=== PATIENT | female | born 1925 | race Caucasian/White ===

== ENCOUNTER → 2016-09-22 | Outpatient (CLI) | payer MEDICARE, BC ==
[2016-03-30 09:20] VITALS: BP 110/72
[~2016-09-22] MED LIST: ASPI-482 PO; BUME1TAB PO; CARV3.122 PO; CRESTOR10 MG PO; FERR325T31 PO; LEVO100T PO; LISI2.5T PO; MAGN400T3 PO; MULT-245 PO; OMEP20CA9 PO; POTA20TA12 PO
--- NOTE | 2016-09-22 14:41 | CARD ---
APPROVED REPORT EXAM: Two-dimensional and M-mode echocardiogram with Doppler and color Doppler. Other Information Quality : Average Rhythm : Pacemaker INDICATION Cardiomyopathy 2D DIMENSIONS RVDd2.0 (2.9-3.5cm)Left Atrium(2D)3.2 (1.6-4.0cm) IVSd0.8 (0.7-1.1cm)Aortic Root(2D)2.6 (2.0-3.7cm) LVDd4.8 (3.9-5.9cm)LVOT Diameter2.0 (1.8-2.4cm) PWd0.8 (0.7-1.1cm)LVDs4.0 (2.5-4.0cm) SV36.9 ml Aortic Valve AoV Peak Escobar.103.1cm/sAoV VTI22.8cm AO Peak GR.4.2mmHgLVOT Peak Escobar.75.5cm/s LVOT VTI 18.49cmAO Mean GR.3mmHg CORINNA (VMAX)2.38fr6EPJ (VTI)2.43cm2 AI P 1/2 Mxpy453yn Mitral Valve MV E Rxfvnvpg58.8cm/sMV E Peak Gr.113mmHg MV DECEL HRVS199arOJ A Uvkruipq02.7cm/s MV E Mean Gr.2mmHgMV DOT18xl E/A Ratio0.8MV A Pbpfttyu640bc MVA (PHT)4.47cm2 TDI E/Lateral E'9.6E/Medial E'14.7 Pulmonary Valve PV Peak Rzlfhbsd23.4cm/sPV Peak Grad.2mmHg RVOT VTI13.8cm Tricuspid Valve TR P. Yxbpkckj704jz/sRAP SYIEPWKR8glYt TR Peak Gr.87cwDhDLYV16tgTp Pulmonary Vein S1 Gptbbxez83.5cm/sD2 Ditrskvg79.0cm/s LEFT VENTRICLE The left ventricle is normal size. There is normal left ventricular wall thickness. Left ventricle sy stolic function is normal. The Ejection Fraction is 50-55%. The left ventricular diastolic function a nd filling is normal for age. RIGHT VENTRICLE The right ventricle is normal size. The right ventricular systolic function is normal. There is a pac emaker/ICD lead seen in the right ventricle. ATRIA The left atrium size is normal. The right atrium size is normal. The interatrial septum is intact wit h no evidence for an atrial septal defect or patent foramen ovale as noted on 2-D or Doppler imaging. AORTIC VALVE The aortic valve is calcified but opens well. The aortic valve is trileaflet. Doppler and Color Flow revealed moderate aortic regurgitation. There is no significant aortic valvular stenosis. MITRAL VALVE The mitral valve is normal in structure and function. There is no mitral valve stenosis. Doppler and Color Flow revealed mild mitral regurgitation. TRICUSPID VALVE The tricuspid valve is normal in structure and function. Doppler and Color Flow revealed mild tricusp id regurgitation. The PA pressure was estimated at 32 mmHg. There is no tricuspid valve stenosis. PULMONIC VALVE The pulmonic valve is not well visualized. Doppler and Color Flow revealed no pulmonic valvular regur gitation. There is no pulmonic valvular stenosis. GREAT VESSELS The aortic root is normal in size. Normal pulmonary venous flow (Doppler). The IVC is normal in size and collapses >50% with inspiration. PERICARDIAL EFFUSION There is no evidence of significant pericardial effusion. Critical Notification Critical Value: No <Conclusion> Left ventricle systolic function is normal. The Ejection Fraction is 50-55%. Moderate aortic regurgitation. Mild mitral regurgitation. Mild tricuspid regurgitation. The PA pressure was estimated at 32 mmHg. There is no evidence of significant pericardial effusion.
== END | disposition home or self-care (01) ==
LOC: ECHO 09:05
PROVIDERS: ATTEND Internal Medicine Cardiovascular Disease
DX: I25.5 Ischemic cardiomyopathy (principal); I35.1 Nonrheumatic aortic (valve) insufficiency; I34.0 Nonrheumatic mitral (valve) insufficiency; I07.1 Rheumatic tricuspid insufficiency
CPT/HCPCS: 93306